=== PATIENT | female | born 1995 | race Caucasian/White ===

== ENCOUNTER 2018-04-08 07:27 | Emergency (ER) | payer BC, SELFPAY ==
[2018-04-08] MEDS ORDERED: BUPIVACAINE 0.5% PF 10 ML VIAL ONE (07:59)
--- NOTE | 2018-04-08 08:05 | ER ---
Nurse's Notes [facility] Name: Belem Carrera Age: 22 yrs Sex: Female : 1995 Arrival Date: 04/08/2018 Time: 07:28 Bed 20 Private MD: Diagnosis: Atypical facial pain Presentation: 04/08 07:43 Presenting complaint: Patient states: Right side jaw pain for 4 days, upper gum area, em denies fever, took ibuprofen at 4AM today. Transition of care: patient was not received from another setting of care. Onset of symptoms was April 04, 2018. Risk Assessment: Do you want to hurt yourself or someone else? Patient reports no desire to harm self or others. Initial Sepsis Screen: Does the patient meet any 2 criteria? No. Patient's initial sepsis screen is negative. Does the patient have a suspected source of infection? No. Patient's initial sepsis screen is negative. Care prior to arrival: None. 07:43 Method Of Arrival: Ambulatory em 07:43 Acuity: CECILIA 4 ss Triage Assessment: 07:46 General: Appears in no apparent distress. uncomfortable. General: Behavior is calm, em cooperative. Pain: Complains of pain in right buccal mucosa. 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 - Social history:: Smoking status: Patient/guardian denies using tobacco. - Ebola Screening: : Patient negative for fever greater than or equal to 101.5 degrees Fahrenheit, and additional compatible Ebola Virus Disease symptoms Patient denies exposure to infectious person Patient denies travel to an Ebola-affected area in the 21 days before illness onset No symptoms or risks identified at this time. Screenin:48 Abuse screen: Denies threats or abuse. Nutritional screening: No deficits noted. em Tuberculosis screening: No symptoms or risk factors identified. Fall Risk None identified. Assessment: 07:49 General: Appears in no apparent distress. uncomfortable, Behavior is calm, cooperative. em Pain: Complains of pain in right buccal mucosa Pain currently is 8 out of 10 on a pain scale. Quality of pain is described as sharp, pulsating. Neuro: Level of Consciousness is awake, alert, obeys commands, Oriented to person, place, time, situation. Cardiovascular: Capillary refill < 3 seconds Patient's skin is warm and dry. Respiratory: Airway is patent Respiratory effort is even, unlabored, Respiratory pattern is regular, symmetrical. GI: Abdomen is round Reports nausea, Patient currently denies vomiting. : No signs and/or symptoms were reported regarding the genitourinary system. EENT: Oral mucosa is moist. no swelling noted to right side, denies trauma. Derm: Skin is intact, Skin is pink, warm \T\ dry. Musculoskeletal: Range of motion: intact in all extremities. 07:50 General: the previous assessment is accurate, call light remains within reach. . ss Vital Signs: 07:46 BP 144 / 95; Pulse 71; Resp 16; Temp 98.6(O); Pulse Ox 100% on R/A; Weight 108.86 kg; em Height 5 ft. 6 in. (167.64 cm); Pain 8/10; 08:16 BP 138 / 89; Pulse 83; Resp 18; Pulse Ox 99% on R/A; Pain 4/10; em 07:46 Body Mass Index 38.74 (108.86 kg, 167.64 cm) em ED Course: 07:28 Patient arrived in ED. as 07:42 Edwin Rivera LVN is Primary Nurse. em 07:43 Jake Perez PA is PHCP. [facility] 07:43 Ruben Shell MD is Attending Physician. jmm 07:46 Arm band placed on. em 07:48 Patient has correct armband on for positive identification. Bed in low position. Call em light in reach. youth nutritional monitor on. Pulse ox on. 07:48 No provider procedures requiring assistance completed. em 07:49 Triage completed. ss 08:04 Quincy Nieves MD is Referral Physician. jmm 08:17 Patient did not have IV access during this emergency room visit. em Administered Medications: 08:05 Drug: Marcaine (0.5 %) 10 ml {Note: administered by REED Joseph.} Volume: 10 ml; Route: em Infiltration; Site: affected area; Outcome: 08:05 Discharge ordered by . jm 08:17 Discharged to home ambulatory. em 08:17 Condition: good 08:17 Discharge instructions given to patient, Instructed on discharge instructions, follow up and referral plans. medication usage, Demonstrated understanding of instructions, follow-up care, medications, Prescriptions given X 2. 08:18 Patient left the ED. em Signatures: Jake Perez PA PA jmm Munoz, Edgar, REHABILITATION TECHNICIAN REHABILITATION TECHNICIAN Molly Cintron Shelby, RN RN ss
--- NOTE | 2018-04-08 08:05 | EDPHYS ---
Physician Documentation [facility] Name: Belem Carrera Age: 22 yrs Sex: Female : 1995 Arrival Date: 04/08/2018 Time: 07:28 Bed 20 Private MD: ED Physician Ruben Shell HPI: 04/08 07:55 This 22 yrs old Female presents to ER via Ambulatory with complaints of jmm Facial Pain. 07:56 The patient presents with pain. Onset: The symptoms/episode began/occurred gradually, 1 jmm week(s) ago. 07:56 Duration: The symptoms are continuous. jmm 07:56 Modifying factors: The symptoms are alleviated by nothing, the symptoms are aggravated jmm by nothing. Associated signs and symptoms: Pertinent negatives: fever. This is a 22 year old female that presents to the ED with right sided facial pain beginning approx 1 week ago. The patient dental pain, the pain is described as sharp and throbbing. Patient denies fever, denies weakness. . 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 - Social history:: Smoking status: Patient/guardian denies using tobacco. - Ebola Screening: : Patient negative for fever greater than or equal to 101.5 degrees Fahrenheit, and additional compatible Ebola Virus Disease symptoms Patient denies exposure to infectious person Patient denies travel to an Ebola-affected area in the 21 days before illness onset No symptoms or risks identified at this time. ROS: 07:56 Constitutional: Negative for fever, chills, and weight loss. jmm 07:56 Neck: Negative for injury, pain, and swelling, Cardiovascular: Negative for chest pain, palpitations, and edema, Respiratory: Negative for shortness of breath, cough, wheezing, and pleuritic chest pain. 07:56 ENT: Positive for facial pain. 07:56 All other systems are negative. Exam: 07:56 Cardiovascular: Regular rate and rhythm. No edema appreciated Respiratory: Normal [facility] respirations, no respiratory distress appreciated Abdomen/GI: Non distended, soft Back: Normal ROM MS/ Extremity: Moves all extremities, no obvious deformities appreciated, no edema noted to the lower extremities Neuro: Awake and alert, normal gait 07:56 Constitutional: The patient appears in no acute distress, alert, awake. 07:56 Head/face: pain on palpation of the right maxillary region. 07:56 ENT: Dental exam: dental caries, that is moderate, diffusely. 07:56 Neck: ROM/movement: is normal. 07:56 Neuro: Orientation: is normal, Mentation: is normal, Memory: is normal, Gait: is steady. 07:56 Psych: Behavior/mood is pleasant, cooperative. Vital Signs: 07:46 BP 144 / 95; Pulse 71; Resp 16; Temp 98.6(O); Pulse Ox 100% on R/A; Weight 108.86 kg; em Height 5 ft. 6 in. (167.64 cm); Pain 8/10; 08:16 BP 138 / 89; Pulse 83; Resp 18; Pulse Ox 99% on R/A; Pain 4/10; em 07:46 Body Mass Index 38.74 (108.86 kg, 167.64 cm) em MDM: 07:45 Patient medically screened. [facility] 07:56 Response to treatment: the patient's symptoms have markedly improved after treatment. [facility] ED course: Patient will be put on a course of abx due to concerns for infection. Symptoms may be related to paresthesias, the patient is encourged to follow up with Neurology if symptoms do not imprave with antibiotics. Patient states she is otherwise scheduled to see a dentist next week for further evaluation. Patient understood and agrees with the plan of care. 08:04 Differential diagnosis: dental abscess, trigeminal neuralgia, TMJ. Data reviewed: vital [facility] signs, nurses notes. Counseling: I had a detailed discussion with the patient and/or guardian regarding: the historical points, exam findings, and any diagnostic results supporting the discharge/admit diagnosis, the presence of at least one elevated blood pressure reading (>120/80) during this emergency department visit, the need for outpatient follow up, to return to the emergency department if symptoms worsen or persist or if there are any questions or concerns that arise at home. Administered Medications: 08:05 Drug: Marcaine (0.5 %) 10 ml {Note: administered by PA. Jake} Volume: 10 ml; Route: em Infiltration; Site: affected area; Disposition: 04/09 06:33 Co-signature as Attending Physician, Ruben Shell MD I agree with the assessment and robbie plan of care. Disposition: 04/08/18 08:05 Discharged to Home. Impression: Atypical facial pain. - Condition is Stable. - Discharge Instructions: Dental Pain, Trigeminal Neuralgia. - Prescriptions for Amoxicillin 875 mg Oral Tablet - take 1 tablet by ORAL route every 12 hours for 10 days; 20 tablet. Ultram 50 mg Oral Tablet - take 1 tablet by ORAL route every 6 hours As needed; 12 tablet. - Medication Reconciliation Form, Thank You Letter, Antibiotic Education, Prescription Opioid Use form. - Follow up: Quincy Nieves MD; When: 2 - 3 days; Reason: Continuance of care. Signatures: Ruben Shell MD MD cha Mickail, Joel, PA PA Edwin Jarrell, ASSISTANT PARALEGAL ASSISTANT PARALEGAL em Corrections: (The following items were deleted from the chart) 04/08 08:18 08:05 04/08/2018 08:05 Discharged to Home. Impression: Atypical facial pain. Condition em is Stable. Forms are Medication Reconciliation Form, Thank You Letter, Antibiotic Education, Prescription Opioid Use. Follow up: Quincy Nieves; When: 2 - 3 days; Reason: Continuance of care. josué
[2018-04-08 08:21] VITALS: TEMP 98.6
[2018-04-08 08:23] VITALS: BP 138/89; O2SAT 99
== END 2018-04-08 08:18 | disposition home or self-care (01) ==
LOC: ER 07:27
DX: G50.1 Atypical facial pain (principal)
CPT/HCPCS: 99284

== ENCOUNTER 2018-04-14 02:09 | Emergency (ER) | payer SELFPAY ==
--- NOTE | 2018-04-14 03:27 | ER ---
Nurse's Notes [facility] Name: Belem Carrera Age: 22 yrs Sex: Female : 1995 Arrival Date: 04/14/2018 Time: 02:10 Bed 11 Private MD: Diagnosis: Acute Allergic Reaction Presentation: 04/14 02:22 Presenting complaint: Patient states: I started taking Clindamycin on Tuesday and then I tl2 developed a rash on Tuesday. It started on my legs and now its on my arms and chest and back. Denies any respiratory difficulty. Transition of care: patient was not received from another setting of care. Onset of symptoms was April 11, 2018. Risk Assessment: Do you want to hurt yourself or someone else? Patient reports no desire to harm self or others. Initial Sepsis Screen: Does the patient meet any 2 criteria? No. Patient's initial sepsis screen is negative. Does the patient have a suspected source of infection? No. Patient's initial sepsis screen is negative. Care prior to arrival: None. 02:22 Method Of Arrival: Ambulatory tl2 02:22 Acuity: CECILIA 4 tl2 Triage Assessment: 02:23 General: Appears in no apparent distress. comfortable, Behavior is calm, cooperative, tl2 appropriate for age. 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 - Social history:: Smoking status: Patient/guardian denies using tobacco. - Ebola Screening: : No symptoms or risks identified at this time. - Family history:: not pertinent. - Hospitalizations: : No recent hospitalization is reported. Screenin:25 Abuse screen: Denies threats or abuse. Nutritional screening: No deficits noted. tl2 Tuberculosis screening: No symptoms or risk factors identified. Fall Risk None identified. Assessment: 03:01 General: Appears comfortable, obese, Behavior is calm, cooperative, appropriate for fc age. Pain: Denies pain. Neuro: Level of Consciousness is awake, alert, obeys commands, Oriented to person, place, time, situation. Cardiovascular: No deficits noted. Respiratory: No deficits noted. GI: No signs and/or symptoms were reported involving the gastrointestinal system. : No deficits noted. EENT: No deficits noted. Derm: Skin is pink, warm \T\ dry. Rash noted that is red, raised, urticaria, on buttocks, chest, right leg and left leg Reports itching. Musculoskeletal: Circulation, motion, and sensation intact. Capillary refill < 3 seconds, Range of motion: intact in all extremities. 03:10 Reassessment: No changes from previously documented assessment. Patient and/or family fc updated on plan of care and expected duration. Pain level reassessed. Patient is alert, oriented x 3, equal unlabored respirations, skin warm/dry/pink. Dr Aguirre in to see and examine pt. Vital Signs: 02:23 BP 124 / 73; Pulse 80; Resp 18; Temp 98.6(O); Pulse Ox 98% on R/A; Weight 131.54 kg; tl2 Height 5 ft. 6 in. (167.64 cm); Pain 0/10; 02:23 Body Mass Index 46.81 (131.54 kg, 167.64 cm) tl2 ED Course: 02:10 Patient arrived in ED. es 02:23 Triage completed. tl2 02:23 Arm band placed on right wrist. tl2 02:56 Mayur Aguirre MD is Attending Physician. wa 03:00 Patient has correct armband on for positive identification. Bed in low position. Call fc light in reach. 03:00 No provider procedures requiring assistance completed. Patient did not have IV access fc during this emergency room visit. Administered Medications: 03:35 Drug: Benadryl 25 mg Route: PO; 03:41 Follow up: Response: No adverse reaction; Medication administered at discharge. 03:35 Drug: predniSONE 40 mg Route: PO; 03:41 Follow up: Response: No adverse reaction; Medication administered at discharge. fc Outcome: 03:27 Discharge ordered by . la 03:41 Discharged to home ambulatory. 03:41 Condition: good 03:41 Discharge instructions given to patient, Instructed on discharge instructions, follow up and referral plans. medication usage, Demonstrated understanding of instructions, follow-up care, medications, Prescriptions given X 1. 03:41 Patient left the ED. fc Signatures: Maida De La Torre Felicia, RN RN fc Ligia Pryor RN RN tl2 Mayur Aguirre MD MD wa
--- NOTE | 2018-04-14 03:27 | EDPHYS ---
Physician Documentation [facility] Name: Belem Carrera Age: 22 yrs Sex: Female : 1995 Arrival Date: 04/14/2018 Time: 02:10 Bed 11 Private MD: ED Physician Mayur Aguirre HPI: 04/14 03:21 This 22 yrs old Female presents to ER via Ambulatory with complaints of Rash. 03:21 The patient's rash thought to be caused by medication, c/o diffuse itchy rash. on clindamycin for infected tooth. denies SOB. The rash is located on the body diffusely. The rash can be described as erythematous, urticarial. Onset: The symptoms/episode began/occurred today. Associated signs and symptoms: Pertinent positives: itching, Pertinent negatives: nausea. Severity of symptoms: At their worst the symptoms were moderate in the emergency department the symptoms are unchanged. Treatment given at home: none. The patient has not experienced similar symptoms in the past. The patient has not recently seen a physician. states she's due to for tooth extraction later today. 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 - Social history:: Smoking status: Patient/guardian denies using tobacco. - Ebola Screening: : No symptoms or risks identified at this time. - Family history:: not pertinent. - Hospitalizations: : No recent hospitalization is reported. ROS: 03:24 Constitutional: Negative for fever, chills, and weight loss, Eyes: Negative for injury, wa pain, redness, and discharge, ENT: Negative for injury, pain, and discharge, Neck: Negative for injury, pain, and swelling, Cardiovascular: Negative for chest pain, palpitations, and edema, Respiratory: Negative for shortness of breath, cough, wheezing, and pleuritic chest pain, Abdomen/GI: Negative for abdominal pain, nausea, vomiting, diarrhea, and constipation, Back: Negative for injury and pain, : Negative for injury, bleeding, discharge, and swelling, MS/Extremity: Negative for injury and deformity, Neuro: Negative for headache, weakness, numbness, tingling, and seizure. 03:24 Skin: Positive for rash, diffusely. 03:24 All other systems are negative. Exam: 03:24 Constitutional: This is a well developed, well nourished patient who is awake, alert, wa and in no acute distress. Head/Face: Normocephalic, atraumatic. Eyes: Pupils equal round and reactive to light, extra-ocular motions intact. Lids and lashes normal. Conjunctiva and sclera are non-icteric and not injected. Cornea within normal limits. Periorbital areas with no swelling, redness, or edema. ENT: Nares patent. No nasal discharge, no septal abnormalities noted. Tympanic membranes are normal and external auditory canals are clear. Oropharynx with no redness, swelling, or masses, exudates, or evidence of obstruction, uvula midline. Mucous membranes moist. Neck: Trachea midline, no thyromegaly or masses palpated, and no cervical lymphadenopathy. Supple, full range of motion without nuchal rigidity, or vertebral point tenderness. No Meningismus. Cardiovascular: Regular rate and rhythm with a normal S1 and S2. No gallops, murmurs, or rubs. Normal PMI, no JVD. No pulse deficits. Respiratory: Lungs have equal breath sounds bilaterally, clear to auscultation and percussion. No rales, rhonchi or wheezes noted. No increased work of breathing, no retractions or nasal flaring. Abdomen/GI: Soft, non-tender, with normal bowel sounds. No distension or tympany. No guarding or rebound. No evidence of tenderness throughout. Back: No spinal tenderness. No costovertebral tenderness. Full range of motion. MS/ Extremity: Pulses equal, no cyanosis. Neurovascular intact. Full, normal range of motion. Neuro: Awake and alert, GCS 15, oriented to person, place, time, and situation. Cranial nerves II-XII grossly intact. Motor strength 5/5 in all extremities. Sensory grossly intact. Cerebellar exam normal. Normal gait. Psych: Awake, alert, with orientation to person, place and time. Behavior, mood, and affect are within normal limits. 03:24 Skin: rash can be described as erythematous, urticarial, and is diffusely located. Vital Signs: 02:23 BP 124 / 73; Pulse 80; Resp 18; Temp 98.6(O); Pulse Ox 98% on R/A; Weight 131.54 kg; tl2 Height 5 ft. 6 in. (167.64 cm); Pain 0/10; 02:23 Body Mass Index 46.81 (131.54 kg, 167.64 cm) tl2 MDM: 02:56 Patient medically screened. ca 03:25 Differential diagnosis: allergic reaction, potentially related clindamycin. will stop wa med. will give Benadryl dn prednisone. Data reviewed: vital signs, nurses notes. Administered Medications: 03:35 Drug: Benadryl 25 mg Route: PO; 03:41 Follow up: Response: No adverse reaction; Medication administered at discharge. 03:35 Drug: predniSONE 40 mg Route: PO; 03:41 Follow up: Response: No adverse reaction; Medication administered at discharge. Disposition: 04/14/18 03:27 Discharged to Home. Impression: Acute Allergic Reaction. - Condition is Stable. - Prescriptions for Prednisone 20 mg Oral Tablet - take 2 tablets by ORAL route once daily for 4 days; 8 tablet. - Medication Reconciliation Form, Thank You Letter, Antibiotic Education, Prescription Opioid Use form. - Follow up: Private Physician; When: 1 - 2 days; Reason: Re-evaluation by your physician. - Problem is new. - Symptoms have improved. - Notes: stop taking clindamycin. take prednisone as prescribed. you may take benadryl as well for itching Signatures: Ayanna Amin RN RN Ligia Pryor RN RN tl2 Mayur Aguirre MD MD wa Corrections: (The following items were deleted from the chart) 03:41 03:27 04/14/2018 03:27 Discharged to Home. Impression: Acute Allergic Reaction. fc Condition is Stable. Forms are Medication Reconciliation Form, Thank You Letter, Antibiotic Education, Prescription Opioid Use. Follow up: Private Physician; When: 1 - 2 days; Reason: Re-evaluation by your physician. Problem is new. Symptoms have improved. wa
[2018-04-14] MEDS ORDERED: DIPHENHYDRAMINE 25 MG TAB/CAP ONE (03:35)
[2018-04-14] MEDS ORDERED: predniSONE 20 MG TAB ONE (03:35)
[2018-04-14 04:00] VITALS: BP 124/73; TEMP 98.6; O2SAT 98
== END 2018-04-14 03:41 | disposition home or self-care (01) ==
LOC: ER 02:09
DX: R21 Rash and other nonspecific skin eruption (principal)
CPT/HCPCS: 99283; J7512

== ENCOUNTER 2018-07-23 21:40 | Emergency (ER) | payer SELFPAY ==
[2018-07-23 22:21] LABS: Urine Blood 2+ (NEG); Urine Glucose NEGATIVE (NEG); Urine Protein 2+ (NEG); Urine Specific Gravity >1.030 (1.005-1.030); Urine pH 5.5 (5.0-7.0)
[2018-07-23 22:37] LABS: Urine Appearance CLOUDY; Urine Bilirubin NEGATIVE (NEG); Urine Blood 3+ (NEG); Urine Color YELLOW; Urine Glucose NEGATIVE (NEG); Urine Protein 2+ (NEG); Urine Urobilinogen 0.2 mg/dL (0.2-1.0); Urine pH 5.5 (5.0-7.0)
[2018-07-23 22:47] LABS: Urine Microscopic Reflex ORDER UMIC
--- NOTE | 2018-07-23 23:05 | ER ---
Nurse's Notes [facility] Name: Belem Carrera Age: 22 yrs Sex: Female : 1995 Arrival Date: 07/23/2018 Time: 21:41 Bed 5 Private MD: Brandon Tan F Diagnosis: Urinary tract infection, site not specified Presentation: 07/23 21:59 Presenting complaint: Patient states: Patient reports pain and blood with urination ea this AM. Patient denies fever at this time. Transition of care: patient was not received from another setting of care. Onset of symptoms was July 23, 2018. Risk Assessment: Do you want to hurt yourself or someone else? Patient reports no desire to harm self or others. Initial Sepsis Screen: Does the patient meet any 2 criteria? No. Patient's initial sepsis screen is negative. Does the patient have a suspected source of infection? Yes: Dysuria/Frequency/Urgency/UTI. Care prior to arrival: None. 21:59 Method Of Arrival: Ambulatory ea 21:59 Acuity: CECILIA 3 ea Triage Assessment: 22:03 General: Appears in no apparent distress. Behavior is calm, cooperative, appropriate ea for age. Pain: Complains of pain in pain with urination. Neuro: Level of Consciousness is awake, alert, obeys commands, Oriented to person, place, time, situation. Cardiovascular: Patient's skin is warm and dry. Respiratory: Airway is patent Respiratory effort is even, unlabored, Respiratory pattern is regular, symmetrical. GI: Bowel sounds present X 4 quads. Derm: Skin is pink, warm \T\ dry. Musculoskeletal: No signs and/or symptoms reported regarding the musculoskeletal system. 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 - Social history:: Smoking status: Patient/guardian denies using tobacco. - Ebola Screening: : No symptoms or risks identified at this time. Screenin:02 Abuse screen: Denies threats or abuse. Nutritional screening: No deficits noted. ea Tuberculosis screening: No symptoms or risk factors identified. Fall Risk None identified. Assessment: 22:00 Reassessment: see triage assessment. ea 23:13 Reassessment: Patient and/or family updated on plan of care and expected duration. Pain ea level reassessed. Patient is alert, oriented x 3, equal unlabored respirations, skin warm/dry/pink. Discharge instruction given to patient, verbalized the understanding of instruction. Vital Signs: 22:01 BP 124 / 69; Pulse 78; Resp 18; Temp 97.6; Pulse Ox 99% ; Weight 113.4 kg; Height 5 ft. ea 6 in. (167.64 cm); Pain 3/10; 22:44 BP 125 / 84; Pulse 69; Resp 18; Pulse Ox 96% on R/A; tl2 22:01 Body Mass Index 40.35 (113.40 kg, 167.64 cm) ea ED Course: 21:41 Patient arrived in ED. am2 21:42 Brandon Tan MD is Private Physician. am2 21:52 Hallie Garibay RN is Primary Nurse. ea 21:53 Franco Ortiz MD is Attending Physician. tw4 22:01 Triage completed. ea 22:09 Patient has correct armband on for positive identification. Bed in low position. Call ea light in reach. Side rails up X 1. 22:09 Arm band placed on right wrist. Patient placed in an exam room, on a stretcher, on ea pulse oximetry. 23:04 Brandon Tan MD is Referral Physician. tw4 23:14 No provider procedures requiring assistance completed. Patient did not have IV access ea during this emergency room visit. Administered Medications: No medications were administered Outcome: 23:04 Discharge ordered by . tw4 23:14 Discharged to home ambulatory. ea 23:14 Condition: good 23:14 Discharge instructions given to patient, Instructed on discharge instructions, follow up and referral plans. medication usage, Demonstrated understanding of instructions, follow-up care, medications, Prescriptions given X 2. 23:15 Patient left the ED. ea Addendum: 07/27/2018 07:38 Addendum: Culture Results: Positive urine culture. No further action required. Bacteria a a5 sensitive to prescribed antibiotic. Signatures: Wilma Yuen RN RN aa5 Ligia Pryor RN RN 2 Bettie Estrada am2 Hallie Garibay RN RN Franco Clifford, MD GALVAN tw4
--- NOTE | 2018-07-23 23:05 | EDPHYS ---
Physician Documentation [facility] Name: Belem Carrera Age: 22 yrs Sex: Female : 1995 Arrival Date: 07/23/2018 Time: 21:41 Bed 5 Private MD: Brandon Tan F ED Physician Franco Ortiz FINANCE TEACHER: 07/23 22:01 LMP 07/15/2018 ea Historical: - Allergies: 22:09 No Known Allergies; ea - Home Meds: 22:09 None [Active]; ea - PMHx: 22:09 None; ea - PSHx: 22:09 ; ea - Immunization history:: Adult Immunizations up to date. - Social history:: Smoking status: Patient/guardian denies using tobacco. - Ebola Screening: : No symptoms or risks identified at this time. Vital Signs: 22:01 BP 124 / 69; Pulse 78; Resp 18; Temp 97.6; Pulse Ox 99% ; Weight 113.4 kg; Height 5 ft. ea 6 in. (167.64 cm); Pain 3/10; 22:44 BP 125 / 84; Pulse 69; Resp 18; Pulse Ox 96% on R/A; tl2 22:01 Body Mass Index 40.35 (113.40 kg, 167.64 cm) ea MDM: 21:53 Patient medically screened. tw4 07/23 22:00 Order name: Urinalysis tw4 07/23 22:01 Order name: Urine Dipstick--Ancillary (enter results); Complete Time: 22:56 ms 07/23 22:00 Order name: Urine Test (obtain specimen); Complete Time: 22:42 tw4 07/23 22:01 Order name: Urine --Ancillary (enter results); Complete Time: 22:56 ms 07/23 22:49 Order name: Urine Microscopic Only EDMS Administered Medications: No medications were administered Disposition: 07/23/18 23:04 Discharged to Home. Impression: Urinary tract infection, site not specified. - Condition is Stable. - Discharge Instructions: Dysuria, Urinary Tract Infection, Adult. - Prescriptions for Pyridium 200 mg Oral Tablet - take 1 tablet by ORAL route every 8 hours for 3 days; 9 tablet. Macrobid 100 mg Oral Capsule - take 1 capsule by ORAL route every 12 hours for 10 days; 20 capsule. - Work release form, Medication Reconciliation Form, Thank You Letter, Antibiotic Education, Prescription Opioid Use form. - Follow up: Brandon Tan MD; When: Upon discharge from the Emergency Department; Reason: If symptoms return, Further diagnostic work-up, Recheck today's complaints, Continuance of care. - Problem is new. - Symptoms have improved. Signatures: Dispatcher [employer] EDHallie Rowell RN RN ea Wadley, Terrence, MD MD tw4 Corrections: (The following items were deleted from the chart) 23:15 23:04 07/23/2018 23:04 Discharged to Home. Impression: Urinary tract infection, site ea not specified. Condition is Stable. Forms are Medication Reconciliation Form, Thank You Letter, Antibiotic Education, Prescription Opioid Use. Follow up: Brandon Tan; When: Upon discharge from the Emergency Department; Reason: If symptoms return, Further diagnostic work-up, Recheck today's complaints, Continuance of care. Problem is new. Symptoms have improved. tw4
[2018-07-23 23:26] LABS: Urine Bacteria <20 /HPF (<20); Urine Culture Reflex Order REFLEXED; Urine RBC >50 /HPF (NONE SEEN)
[2018-07-23 23:42] VITALS: TEMP 97.6
[2018-07-23 23:44] VITALS: BP 125/84; O2SAT 96
== END 2018-07-23 23:15 | disposition home or self-care (01) ==
LOC: ER 21:40
DX: N39.0 Urinary tract infection, site not specified (principal)
CPT/HCPCS: 81003; 81015; 81025; 87077; 87086; 87088; 87186; 99283

== ENCOUNTER 2019-01-14 01:43 | Emergency (ER) | payer SELFPAY ==
--- NOTE | 2019-01-14 02:19 | EDPHYS ---
Physician Documentation [facility] Name: Belem Carrera Age: 23 yrs Sex: Female : 1995 Arrival Date: 01/14/2019 Time: 01:46 Bed 8 Private MD: Brandon Tan F ED Physician Ananth Paige HPI: 01/14 02:09 This 23 yrs old Female presents to ER via Ambulatory with complaints of eye gs behind prostatic eye infected. 02:09 The patient is experiencing pain, redness. Onset: The symptoms/episode began/occurred gs yesterday. Duration: the symptoms are continuous. Aggravated by opening eye, pressure, wearing prothesis. Associated signs and symptoms: Pertinent negatives: fever, headache. Severity of symptoms: At their worst the symptoms were moderate in the emergency department the symptoms are unchanged. The patient has experienced similar episodes in the past, a few times. Historical: - Allergies: 02:06 No Known Allergies; aa1 - Home Meds: 02:06 None [Active]; aa1 - PMHx: 02:06 None; aa1 - PSHx: 02:06 ; Prosthetic L Eye; aa1 - Immunization history:: Last tetanus immunization: < 10 years ago. - Social history:: Smoking status: Patient/guardian denies using tobacco. - Ebola Screening: : No symptoms or risks identified at this time. ROS: 02:09 All other systems are negative. gs Exam: 02:09 Constitutional: The patient appears alert, awake, uncomfortable. gs 02:09 Eyes: Periorbital structures: appear normal, no cellulitis, Pupils: opaque left cornea chronic, blind in left eye, Extraocular movements: no acute changes, Conjunctiva: injected, in the left eye. Vital Signs: 01:53 BP 134 / 74; Pulse 69; Resp 16; Temp 98.4; Pulse Ox 100% on R/A; Weight 113.4 kg; aa1 Height 5 ft. 6 in. (167.64 cm); Pain 0/10; 01:53 Body Mass Index 40.35 (113.40 kg, 167.64 cm) aa1 MDM: 02:03 Patient medically screened. gs 02:09 Differential diagnosis: Acute iritis of Data reviewed: vital signs, nurses notes. gs Counseling: I had a detailed discussion with the patient and/or guardian regarding: the historical points, exam findings, and any diagnostic results supporting the discharge/admit diagnosis, the need for outpatient follow up, an opthalmologist. Response to treatment: There is no appreciated change of the patient's symptoms at this time. Administered Medications: No medications were administered Disposition: 01/14/19 02:18 Discharged to Home. Impression: Conjunctivitis. - Condition is Stable. - Discharge Instructions: Bacterial Conjunctivitis. - Prescriptions for Ocuflox 0.3 % Ophthalmic Drops - instill 2 drops by OPHTHALMIC route every 4 hours for 5 days; 5 milliliter. - Work release form, Medication Reconciliation Form, Thank You Letter, Antibiotic Education, Prescription Opioid Use form. - Follow up: Zi De Leon MD; When: 2 - 3 days; Reason: Re-evaluation by your physician. Signatures: Jessica Scott RN RN aa1 Hallie Garibay RN RN ea Ananth Paige MD MD gs Corrections: (The following items were deleted from the chart) 02:31 02:18 01/14/2019 02:18 Discharged to Home. Impression: Conjunctivitis. Condition is ea Stable. Forms are Medication Reconciliation Form, Thank You Letter, Antibiotic Education, Prescription Opioid Use. Follow up: Zi De Leon; When: 2 - 3 days; Reason: Re-evaluation by your physician. gs
--- NOTE | 2019-01-14 02:19 | ER ---
Nurse's Notes [facility] Name: Belem Carrera Age: 23 yrs Sex: Female : 1995 Arrival Date: 01/14/2019 Time: 01:46 Bed 8 Private MD: Brandon Tan F Diagnosis: Conjunctivitis Presentation: 01/14 01:53 Presenting complaint: Patient states: she thinks she may have an infection behind her aa1 prosthetic eye. States she has felt some burning and noticed some purulent drainage when she moved her prosthesis and when she took it out her eye behind it was red and swollen. Transition of care: patient was not received from another setting of care. Onset of symptoms was January 13, 2019. Risk Assessment: Do you want to hurt yourself or someone else? Patient reports no desire to harm self or others. Initial Sepsis Screen: Does the patient meet any 2 criteria? No. Patient's initial sepsis screen is negative. Does the patient have a suspected source of infection? Yes: Skin breakdown/wound. Care prior to arrival: None. 01:53 Method Of Arrival: Ambulatory aa1 01:53 Acuity: CECILIA 4 aa1 Historical: - Allergies: 02:06 No Known Allergies; aa1 - Home Meds: 02:06 None [Active]; aa1 - PMHx: 02:06 None; aa1 - PSHx: 02:06 ; Prosthetic L Eye; aa1 - Immunization history:: Last tetanus immunization: < 10 years ago. - Social history:: Smoking status: Patient/guardian denies using tobacco. - Ebola Screening: : No symptoms or risks identified at this time. Screenin:03 Abuse screen: Denies threats or abuse. Denies injuries from another. Nutritional aa1 screening: No deficits noted. Tuberculosis screening: No symptoms or risk factors identified. Fall Risk None identified. Assessment: 02:03 General: Appears in no apparent distress. comfortable, Behavior is calm, cooperative, aa1 appropriate for age. Pain: Denies pain. Neuro: Level of Consciousness is awake, alert, obeys commands, Oriented to person, place, time, situation. Respiratory: Airway is patent Respiratory effort is even, unlabored, Respiratory pattern is regular, symmetrical. GI: No signs and/or symptoms were reported involving the gastrointestinal system. : No signs and/or symptoms were reported regarding the genitourinary system. EENT: Eyes are tearing on left eye Sclera/Cornea are reddened in left eye. Derm: Skin is intact, is healthy with good turgor, Skin is pink, warm \T\ dry. 02:28 Reassessment: Patient and/or family updated on plan of care and expected duration. Pain ea level reassessed. Patient is alert, oriented x 3, equal unlabored respirations, skin warm/dry/pink. Discharge instructions given to patient, verbalized the understanding of instruction. Pt left ambulatory accompanied by significant other. Vital Signs: 01:53 BP 134 / 74; Pulse 69; Resp 16; Temp 98.4; Pulse Ox 100% on R/A; Weight 113.4 kg; aa1 Height 5 ft. 6 in. (167.64 cm); Pain 0/10; 01:53 Body Mass Index 40.35 (113.40 kg, 167.64 cm) aa1 ED Course: 01:46 Patient arrived in ED. es 01:47 Brandon Tan MD is Private Physician. es 01:49 Jessica Scott, KAYLEE is Primary Nurse. aa1 01:53 Arm band placed on right wrist. aa1 01:54 Ananth Paige MD is Attending Physician. gs 01:59 Triage completed. aa1 02:03 Patient has correct armband on for positive identification. Bed in low position. Call aa1 light in reach. Pulse ox on. NIBP on. 02:03 No provider procedures requiring assistance completed. Patient did not have IV access aa1 during this emergency room visit. 02:17 Zi De Leon MD is Referral Physician. Administered Medications: No medications were administered Outcome: 02:18 Discharge ordered by . gs 02:31 Discharged to home ambulatory, with significant other. ea 02:31 Condition: good 02:31 Discharge instructions given to patient, Instructed on discharge instructions, follow up and referral plans. medication usage, Demonstrated understanding of instructions, follow-up care, medications. 02:31 Patient left the ED. ea Signatures: Jessica Scott, KAYLEE RN aa1 Maida De La Torre Elena, RN RN ea Starr, Gregory, MD MD
[2019-01-14 02:50] VITALS: BP 134/74; TEMP 98.4; O2SAT 100
== END 2019-01-14 02:31 | disposition home or self-care (01) ==
LOC: ER 01:43
DX: H10.9 Unspecified conjunctivitis (principal); Z97.0 Presence of artificial eye
CPT/HCPCS: 99283

== ENCOUNTER 2019-03-07 16:02 | Emergency (ER) | payer SELFPAY ==
--- NOTE | 2019-03-07 16:23 | ER ---
Nurse's Notes [facility] Name: Belem Carrera Age: 23 yrs Sex: Female : 1995 Arrival Date: 03/07/2019 Time: 16:04 Bed 11 Private MD: Brandon Tan F Diagnosis: Other otitis externa Presentation: 03/07 16:05 Presenting complaint: Patient states: i have a severe R ear pain since Tuesday, i could hj hardly hear from that side; denies trauma to the area;. Transition of care: patient was not received from another setting of care. Onset of symptoms was March 07, 2019. Risk Assessment: Do you want to hurt yourself or someone else? Patient reports no desire to harm self or others. Initial Sepsis Screen: Does the patient meet any 2 criteria? No. Patient's initial sepsis screen is negative. Does the patient have a suspected source of infection? No. Patient's initial sepsis screen is negative. Care prior to arrival: None. 16:05 Method Of Arrival: Ambulatory 16:05 Acuity: CECILIA 4 hj Triage Assessment: 16:14 General: Appears in no apparent distress. uncomfortable, obese, Behavior is calm, hj cooperative, appropriate for age. Pain: Complains of pain in right ear. EENT: Reports pain in right ear. 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 - Social history:: Smoking status: Patient/guardian denies using tobacco, Patient/guardian denies using alcohol. - Ebola Screening: : Patient negative for fever greater than or equal to 101.5 degrees Fahrenheit, and additional compatible Ebola Virus Disease symptoms Patient denies exposure to infectious person Patient denies travel to an Ebola-affected area in the 21 days before illness onset. Screenin:14 Abuse screen: Denies threats or abuse. Denies injuries from another. Nutritional hj screening: No deficits noted. Tuberculosis screening: No symptoms or risk factors identified. Fall Risk None identified. Vital Signs: 16:06 BP 132 / 85; Pulse 75; Resp 18; Temp 97.0(TE); Pulse Ox 98% on R/A; Weight 113.4 kg; hj Height 5 ft. 6 in. (167.64 cm); Pain 8/10; 16:06 Body Mass Index 40.35 (113.40 kg, 167.64 cm) ED Course: 16:04 Patient arrived in ED. mr 16:04 Brandon Tan MD is Private Physician. mr 16:05 [facility] 16:05 Joselito Batres MD is Attending Physician. [facility] 16:06 Triage completed. 16:07 Arm band placed on right wrist. hj 16:14 Sven Griffiths, KAYLEE is Primary Nurse. hj 16:15 Patient has correct armband on for positive identification. Bed in low position. Call hj light in reach. Side rails up X 1. Adult w/ patient. 16:22 Arin Garcia MD is Referral Physician. [facility] 16:31 No provider procedures requiring assistance completed. Patient did not have IV access hj during this emergency room visit. Administered Medications: No medications were administered Outcome: 16:22 Discharge ordered by MD. [facility] 16:31 Discharged to home ambulatory, with family. 16:31 Condition: stable 16:31 Discharge instructions given to patient, family, Instructed on discharge instructions, follow up and referral plans. medication usage, Demonstrated understanding of instructions, follow-up care, medications, Prescriptions given X 1. 16:31 Patient left the ED. Signatures: Jake Perez PA PA [facility] Rani Christian mr Sven Griffiths, RN RN hj Corrections: (The following items were deleted from the chart) 16:08 16:06 Pulse 75bpm; Resp 18bpm; Pulse Ox 98% RA; Temp 97.0F Temporal; 113.4 kg; Height 5 hj ft. 6 in.; BMI: 40.3; Pain 8/10; hj
--- NOTE | 2019-03-07 16:23 | EDPHYS ---
Physician Documentation [facility] Name: Belem Carrera Age: 23 yrs Sex: Female : 1995 Arrival Date: 03/07/2019 Time: 16:04 Bed 11 Private MD: Brandon Tan F ED Physician Joselito Batres HPI: 03/07 16:19 This 23 yrs old Female presents to ER via Ambulatory with complaints of Ear jmm Pain. 16:19 The patient presents with pain, that is acute. Onset: The symptoms/episode jmm began/occurred gradually, 3 day(s) ago. Modifying factors: The symptoms are alleviated by nothing, the symptoms are aggravated by pulling on ears. Associated signs and symptoms: Pertinent negatives: fever. This is a 23 year old female with no chronic medical conditions that presents to the ED with complaints of right ear pain. Patient states she was playing on a water slide this past Tuesday. Denies fever, denies cough, denies congestion. . [employer]: 16:06 LMP 02/07/2019 Historical: - Allergies: 16:06 No Known Allergies; hj - PMHx: 16:06 None; hj - PSHx: 16:06 ; Prosthetic L Eye; hj - Immunization history:: Adult Immunizations up to date. - Social history:: Smoking status: Patient/guardian denies using tobacco, Patient/guardian denies using alcohol. - Ebola Screening: : Patient negative for fever greater than or equal to 101.5 degrees Fahrenheit, and additional compatible Ebola Virus Disease symptoms Patient denies exposure to infectious person Patient denies travel to an Ebola-affected area in the 21 days before illness onset. ROS: 16:19 Constitutional: Negative for fever, chills, and weight loss. jmm 16:19 Cardiovascular: Negative for chest pain, palpitations, and edema, Respiratory: Negative for shortness of breath, cough, wheezing, and pleuritic chest pain, Neuro: Negative for headache, weakness, numbness, tingling, and seizure. 16:19 ENT: Positive for ear pain. 16:19 All other systems are negative. Exam: 16:19 Constitutional: This is a well developed, well nourished patient who is awake, alert, jmm and in no acute distress. Head/Face: atraumatic. Eyes: EOMI, no conjunctival erythema appreciated 16:19 Neck: Trachea midline, Supple Chest/axilla: Normal chest wall appearance and motion. Cardiovascular: Regular rate and rhythm. No edema appreciated Respiratory: Normal respirations, no respiratory distress appreciated Abdomen/GI: Non distended, soft Back: Normal ROM Skin: General appearance color normal MS/ Extremity: Moves all extremities, no obvious deformities appreciated, no edema noted to the lower extremities Neuro: Awake and alert, normal gait Psych: Behavior is normal, Mood is normal, Patient is cooperative and pleasant 16:19 ENT: Ear canal(s): erythema, that is moderate, of the right canal, purulent discharge, that is minimal, in the right canal, TM's: are normal. Vital Signs: 16:06 BP 132 / 85; Pulse 75; Resp 18; Temp 97.0(TE); Pulse Ox 98% on R/A; Weight 113.4 kg; hj Height 5 ft. 6 in. (167.64 cm); Pain 8/10; 16:06 Body Mass Index 40.35 (113.40 kg, 167.64 cm) hj MDM: 16:13 Patient medically screened. [facility] 16:19 Data reviewed: vital signs, nurses notes. Counseling: I had a detailed discussion with [facility] the patient and/or guardian regarding: the presence of at least one elevated blood pressure reading (>120/80) during this emergency department visit, the need for outpatient follow up, to return to the emergency department if symptoms worsen or persist or if there are any questions or concerns that arise at home. ED course: PE exam consistent with OM. Patient is advised to follow up with ENT or pcp for further evaluation. Patient was otherwise given strict return precautions. patient understood and agrees with the plan of care. . Administered Medications: No medications were administered Disposition: 16:19 Chart complete. [facility] Disposition: 19 16:22 Discharged to Home. Impression: Other otitis externa. - Condition is Stable. - Discharge Instructions: Otitis Externa. - Prescriptions for Cortisporin- TC 3.3-3-10-0.5 mg/mL Otic Suspension - instill 4 drop by OTIC route every 6 hours; 1 bottle. - Medication Reconciliation Form, Thank You Letter, Antibiotic Education, Prescription Opioid Use form. - Follow up: Arin Garcia MD; When: 2 - 3 days; Reason: Recheck today's complaints, Continuance of care, Re-evaluation by your physician. Signatures: Jake Perez PA PA jmm Joaquin, Henry, RN RN hj Corrections: (The following items were deleted from the chart) 16:31 16:22 03/07/2019 16:22 Discharged to Home. Impression: Other otitis externa. Condition hj is Stable. Forms are Medication Reconciliation Form, Thank You Letter, Antibiotic Education, Prescription Opioid Use. Follow up: Arin Garcia; When: 2 - 3 days; Reason: Recheck today's complaints, Continuance of care, Re-evaluation by your physician. josué
[2019-03-07 17:04] VITALS: BP 132/85; TEMP 97; O2SAT 98
== END 2019-03-07 16:31 | disposition home or self-care (01) ==
LOC: ER 16:02
DX: H60.8X9 Other otitis externa, unspecified ear (principal)
CPT/HCPCS: 99282

== ENCOUNTER 2022-10-21 13:42 | Emergency (ER) | payer SELFPAY ==
[2022-10-21 14:36] LABS: Absolute Lymphocytes (CBC) 1.7 K/uL (0.7-4.9); Hematocrit 41.1 % (36.0-45.0); Lymphocytes % 24.2 % (15.3-44.8); MCV 88.3 fL (80-100); MPV 8.1 fL (7.6-11.3); RBC Red Blood Cell Count 4.66 M/uL (3.86-4.86)
[2022-10-21 14:37] LABS: Urine Blood Negative (Negative); Urine Glucose Negative (Negative); Urine Protein Negative (Negative); Urine Specific Gravity 1.025 (1.005-1.030); Urine pH 5.5 (5.0-7.0)
[2022-10-21 14:47] LABS: Urine Bacteria <20 /HPF (<20); Urine RBC <5 /HPF (None Seen)
[2022-10-21 14:56] LABS: ALT/SGPT 33 U/L (13-56); AST/SGOT 13 U/L (15-37); Albumin 3.6 g/dL (3.4-5.0); Alkaline Phosphatase 50 U/L (45-117); BUN Blood Urea Nitrogen 9 mg/dL (7-18); Bicarbonate 28 mmol/L (21-32); Bilirubin Total 0.7 mg/dL (0.2-1.0); Glomerular Filtration Rate 94 ml/min (=/>90); Glucose Level 101 mg/dL (74-106); Potassium 3.7 mmol/L (3.5-5.1); Protein, Total 7.7 g/dL (6.4-8.2); Sodium Level 143 mmol/L (136-145)
[2022-10-21 14:57] LABS: HCG, Quantitative < 1 mIU/mL (1-3)
[2022-10-21 15:01] LABS: Urine Specific Gravity/Preg 1.025 (1.005-1.030)
--- NOTE | 2022-10-21 15:38 | ER ---
Nurse's Notes [facility] Name: Belem Carrera Age: 27 yrs Sex: Female : 1995 Arrival Date: 10/21/2022 Time: 13:45 Bed 14 Private MD: Diagnosis: Abdominal pain, Generalized Presentation: 10/21 13:49 Chief complaint: Patient states: positive 2 days ago, pt reports pain to RLQ. aa5 Denies vaginal bleeding. 13:52 Coronavirus screen: At this time, the client does not indicate any symptoms associated aa5 with coronavirus-19. Ebola Screen: Patient denies travel to an Ebola-affected area in the 21 days before illness onset. Initial Sepsis Screen: Does the patient meet any 2 criteria? No. Patient's initial sepsis screen is negative. Does the patient have a suspected source of infection? No. Patient's initial sepsis screen is negative. Risk Assessment: Do you want to hurt yourself or someone else? Patient reports no desire to harm self or others. Onset of symptoms was September 2022. 13:52 Acuity: CECILIA 3 aa5 13:52 Method Of Arrival: Ambulatory aa5 Triage Assessment: 16:03 General: Appears in no apparent distress. comfortable. General: Behavior is calm, kr3 cooperative, appropriate for age. Pain: Denies pain. 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 - Social history:: Smoking status: Patient denies any tobacco usage or history of. Screenin:02 [facility] ED Fall Risk Assessment (Adult) History of falling in the last 3 months, kr3 including since admission No falls in past 3 months (0 pts) Confusion or Disorientation No (0 pts) Intoxicated or Sedated No (0 pts) Impaired Gait No (0 pts) Mobility Assist Device Used No (0 pt) Altered Elimination No (0 pt) Score/Fall Risk Level 0 - 2 = Low Risk. Abuse screen: Denies threats or abuse. Nutritional screening: No deficits noted. Tuberculosis screening: No symptoms or risk factors identified. Assessment: 16:07 Reassessment: Patient appears in no apparent distress at this time. Patient and/or kr3 family updated on plan of care and expected duration. Pain level reassessed. Patient is alert, oriented x 3, equal unlabored respirations, skin warm/dry/pink. Vital Signs: 13:50 BP 144 / 97; Pulse 73; Resp 18 S; Temp 98.4(TE); Pulse Ox 100% on R/A; Height 5 ft. 6 aa5 in. (167.64 cm) (R); 13:54 Weight 125.19 kg (M); aa5 13:54 Body Mass Index 44.55 (125.19 kg, 167.64 cm) aa5 ED Course: 13:45 Patient arrived in ED. as 13:46 Jack Herbert MD is Attending Physician. jr11 13:49 Arm band placed on. aa5 13:52 Triage completed. aa5 14:00 Inserted saline lock: 22 gauge in right antecubital area, using aseptic technique. kr3 Blood collected. 14:14 Clementina Monge, KAYLEE is Primary Nurse. kr3 15:37 Rex Luu DO is Referral Physician. jr11 16:03 No provider procedures requiring assistance completed. IV discontinued, intact, kr3 bleeding controlled, No redness/swelling at site. Pressure dressing applied. 16:04 Bed in low position. Call light in reach. Side rails up X 1. kr3 Administered Medications: No medications were administered Medication: 16:07 VIS not applicable for this client. kr3 Outcome: 15:38 Discharge ordered by . jr11 16:01 Patient left the ED. kr3 16:04 Discharged to home ambulatory. kr3 16:04 Condition: stable 16:04 Discharge instructions given to patient, Instructed on discharge instructions, follow up and referral plans. Demonstrated understanding of instructions, follow-up care. Signatures: Molly Desir Audri, RN RN aa5 Jack Herbert MD MD jr11 Clementina Monge, KAYLEE RN kr3 Corrections: (The following items were deleted from the chart) 13:52 13:49 Chief complaint: Patient states: positive 2 days ago, pt reports pain aa5 to RLQ. aa5 13:53 13:50 2, LMP 09/17/2022 aa5 aa5 16:04 14:55 Inserted saline lock: 22 gauge in right antecubital area, using aseptic kr3 technique. Blood collected. kr3
--- NOTE | 2022-10-21 15:39 | EDPHYS ---
Physician Documentation [facility] Name: Belem Carrera Age: 27 yrs Sex: Female : 1995 Arrival Date: 10/21/2022 Time: 13:45 Bed 14 Private MD: ED Physician Jack Herbert HPI: 10/21 14:04 Patient is a 27-year-old G2, P2 here after taking a test x2 and it being jr11 positive. Patient complains of mild discomfort right lower quadrant, 5 out of 10, denies any modifying factors. No nausea no vomiting. 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 - Social history:: Smoking status: Patient denies any tobacco usage or history of. ROS: 14:04 All other systems are negative. jr11 Exam: 14:04 Constitutional: This is a well developed, well nourished patient who is awake, alert, jr11 and in no acute distress. Head/Face: Normocephalic, atraumatic. Neck: Trachea midline, no thyromegaly or masses palpated, and no cervical lymphadenopathy. Supple, full range of motion without nuchal rigidity, or vertebral point tenderness. No Meningismus. Chest/axilla: Normal chest wall appearance and motion. Nontender with no deformity. No lesions are appreciated. Respiratory: Lungs have equal breath sounds bilaterally, clear to auscultation and percussion. No rales, rhonchi or wheezes noted. No increased work of breathing, no retractions or nasal flaring. Abdomen/GI: Soft, non-tender, with normal bowel sounds. No distension or tympany. No guarding or rebound. No evidence of tenderness throughout. Back: No spinal tenderness. No costovertebral tenderness. Full range of motion. Skin: Warm, dry with normal turgor. Normal color with no rashes, no lesions, and no evidence of cellulitis. MS/ Extremity: Pulses equal, no cyanosis. Neurovascular intact. Full, normal range of motion. Vital Signs: 13:50 BP 144 / 97; Pulse 73; Resp 18 S; Temp 98.4(TE); Pulse Ox 100% on R/A; Height 5 ft. 6 aa5 in. (167.64 cm) (R); 13:54 Weight 125.19 kg (M); aa5 13:54 Body Mass Index 44.55 (125.19 kg, 167.64 cm) aa5 MDM: 13:57 Patient medically screened. [facility] 14:04 Differential diagnosis: nonspecific abdominal pain, ovarian cyst, urinary tract jr11 infection, appy. Data reviewed: vital signs, nurses notes. 15:36 Test considered but Not performed: CT: shared decision making wants to do watchful jr11 waiting . 10/21 13:59 Order name: CBC with Diff; Complete Time: 14:46 10/21 13:59 Order name: Quantitative Hcg; Complete Time: 15:15 [facility] 10/21 13:59 Order name: CMP; Complete Time: 15:15 [facility] 10/21 14:06 Order name: UA MICROSCOPIC; Complete Time: 14:50 10/21 14:37 Order name: Urine Dipstick-Ancillary; Complete Time: 14:46 EDSD 10/21 13:59 Order name: IV Saline Lock; Complete Time: 14:28 10/21 13:59 Order name: Labs collected and sent; Complete Time: 14:28 10/21 13:59 Order name: NPO; Complete Time: 14:28 [facility] 10/21 13:59 Order name: Urine Dipstick-Ancillary (obtain specimen); Complete Time: 14:31 [facility] 10/21 13:59 Order name: Urine Test (obtain specimen); Complete Time: 14:31 [facility] 10/21 14:41 Order name: Urine --Ancillary (enter results); Complete Time: 15:15 kj1 Administered Medications: No medications were administered Disposition Summary: 10/21/22 15:38 Discharge Ordered Location: Home [facility] Condition: Stable jr11 Diagnosis - Abdominal pain, Generalized jr11 Followup: jr11 - With: Rex Luu, DO - When: 2 - 3 days - Reason: Re-evaluation by your physician Discharge Instructions: - Discharge Summary Sheet jr11 - Abdominal Pain, Adult jr11 Forms: - Medication Reconciliation Form jr11 - Thank You Letter jr11 - Antibiotic Education jr11 - Prescription Opioid Use jr11 Signatures: Dispatcher [employer] Wilma Flores, RN RN aa5 Jack Herbert MD MD jr11 Corrections: (The following items were deleted from the chart) 14:41 14:07 URINALYSIS+U.LAB.BRZ ordered. EDSD EDMS
[2022-10-21 16:07] VITALS: BP 144/97; TEMP 98.4; O2SAT 100
== END 2022-10-21 16:01 | disposition home or self-care (01) ==
LOC: ER 13:42
DX: R10.84 Generalized abdominal pain (principal)
CPT/HCPCS: 36415; 80053; 81003; 81015; 81025; 84702; 85025; 99283

== ENCOUNTER 2023-07-19 12:22 | Emergency (ER) | payer SELFPAY ==
[2012-03-04 19:30] VITALS: BP 117/59
[2023-07-19] MEDS ORDERED: IBUPROFEN 200 MG TAB PO ONE (12:49)
[2023-07-19 13:15] LABS: Specific Gravity 1.016 (1.005-1.030)
[2023-07-19 13:22] LABS: Specific Gravity 1.016 (1.005-1.030); Urine Bacteria None Seen /HPF (<20); Urine Bilirubin NEGATIVE (Negative); Urine Blood 1+ (Negative); Urine Clarity Extremely Turbid (Clear); Urine Color Light-Yellow (Yellow); Urine Glucose NEGATIVE (Negative); Urine Mucus Slight /HPF (None Seen); Urine Protein NEGATIVE (Negative); Urine RBC 21-50 /HPF (None Seen); Urine Urobilinogen Normal (Normal); Urine pH 5.5 (5.0-7.0)
--- NOTE | 2023-07-19 13:44 | EDPHYS ---
Physician Documentation [facility] Name: Belem Carrera Age: 27 yrs Sex: Female : 1995 Arrival Date: 07/19/2023 Time: 12:22 Bed 9 Private MD: PAULIE Physician Ruben Shell HPI: 07/19 12:30 This 27 yrs old Female presents to ER via Ambulatory with complaints of Urinary jh7 Problem-burning with urination. 12:30 Onset: The symptoms/episode began/occurred last night. Associated signs and symptoms: jh7 Pertinent negatives: abdominal pain, chest pain, fever, shortness of breath, flank pain. 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 - Social history:: Smoking status: Reported history of juuling and/or vaping. ROS: 12:30 Constitutional: Negative for fever, chills, and weight loss, Cardiovascular: Negative jh7 for chest pain, palpitations, and edema, Respiratory: Negative for shortness of breath, cough, wheezing, and pleuritic chest pain, Abdomen/GI: Negative for abdominal pain, nausea, vomiting, diarrhea, and constipation, Back: Negative for injury and pain, MS/Extremity: Negative for injury and deformity, Skin: Negative for injury, rash, and discoloration, Neuro: Negative for headache, weakness, numbness, tingling, and seizure, 12:30 : Positive for hematuria, burning with urination, Negative for flank pain, vaginal discharge, 12:30 All other systems are negative, Exam: 12:30 Constitutional: This is a well developed, well nourished patient who is awake, alert, jh7 and in no acute distress. Cardiovascular: Regular rate and rhythm with a normal S1 and S2. No gallops, murmurs, or rubs. Normal PMI, no JVD. No pulse deficits. Respiratory: Lungs have equal breath sounds bilaterally, clear to auscultation and percussion. No rales, rhonchi or wheezes noted. No increased work of breathing, no retractions or nasal flaring. Abdomen/GI: Soft, non-tender, with normal bowel sounds. No distension or tympany. No guarding or rebound. No evidence of tenderness throughout. Back: No spinal tenderness. No costovertebral tenderness. Full range of motion. Skin: Warm, dry with normal turgor. Normal color with no rashes, no lesions, and no evidence of cellulitis. MS/ Extremity: Pulses equal, no cyanosis. Neurovascular intact. Full, normal range of motion. Neuro: Awake and alert, GCS 15, oriented to person, place, time, and situation. Normal gait. Vital Signs: 12:28 BP 125 / 82; Pulse 77; Resp 16 S; Temp 98.4; Pulse Ox 100% on R/A; Weight 113.4 kg (R); cm10 Height 5 ft. 6 in. (R); Pain 07/05; 12:28 Body Mass Index 40.35 (113.40 kg, 167.64 cm) cm10 12:28 Pain Scale: Adult cm10 MDM: 12:28 Patient medically screened. [facility] 13:50 Differential diagnosis: UTI, Pyelonephritis, bacterial vaginosis, yeast infection, jh7 dysuria. Data reviewed: vital signs, nurses notes, lab test result(s). I considered the following discharge prescriptions or medication management in the emergency department Medications were administered in the Emergency Department. See MAR. Counseling: I had a detailed discussion with the patient and/or guardian regarding the historical points, exam findings, and any diagnostic results supporting the discharge/admit diagnosis, to return to the emergency department if symptoms worsen or persist or if there are any questions or concerns that arise at home. Response to treatment: the patient's symptoms have mildly improved after treatment. 07/19 12:35 Order name: Urinalysis w/ reflexes; Complete Time: 13:44 cm10 07/19 12:35 Order name: Test, Urine; Complete Time: 13:21 cm10 07/19 13:27 Order name: Urine Culture EDMS Administered Medications: 12:36 Drug: Ibuprofen PO 600 mg PO once Route: PO; cm10 13:54 Follow up: Response: No adverse reaction eh3 Disposition Summary: 07/19/23 13:44 Discharge Ordered Notes: Location: Home [facility] Problem: new 7 Symptoms: have improved jh7 Condition: Stable [facility] Diagnosis - UTI/ Urinary tract infection, site not specified 7 Followup: [facility] - With: Private Physician - When: 2 - 3 days - Reason: Recheck today's complaints Discharge Instructions: - Discharge Summary Sheet [facility] - Urinary Tract Infection, Adult [facility] Forms: - Work release form 3 - Medication Reconciliation Form [facility] - Thank You Letter [facility] - Antibiotic Education [facility] - Patient Portal Instructions [facility] - Leadership Thank You Letter [facility] Prescriptions: - Pyridium 200 mg Oral Tablet - take 1 tablet ORAL route every 8 hours for 3 days; 9 tablet; Refills: 0, [facility] Product Selection Permitted - Macrobid 100 mg Oral Capsule - take 1 capsule ORAL route every 12 hours for 7 days; 14 capsule; Refills: 0, [facility] Product Selection Permitted Signatures: Dispatcher [employer] Shasta Garcia FNP [employer]RAKE [employer]ER [facility] Lisa Desir RN RN 10 Debbie Garcia RN 3
--- NOTE | 2023-07-19 13:44 | ER ---
Nurse's Notes [facility] Name: Belem Carrera Age: 27 yrs Sex: Female : 1995 Arrival Date: 07/19/2023 Time: 12:22 Bed 9 Private MD: Diagnosis: UTI/ Urinary tract infection, site not specified Presentation: 07/19 12:28 Chief complaint: Patient states: urinary frequency, burning with urination and blood in cm10 her urine onset last night. No fevers. Coronavirus screen: Vaccine status: Patient reports receiving the 2nd dose of the covid vaccine. Client denies travel out of the [place] in the last 14 days. Ebola Screen: Patient denies travel to an Ebola-affected area in the 21 days before illness onset. No symptoms or risks identified at this time. Initial Sepsis Screen: Does the patient meet any 2 criteria? No. Patient's initial sepsis screen is negative. Does the patient have a suspected source of infection? No. Patient's initial sepsis screen is negative. Risk Assessment: Do you want to hurt yourself or someone else? Patient reports no desire to harm self or others. Onset of symptoms was July 19, 2023. 12:28 Method Of Arrival: Ambulatory cm10 12:28 Acuity: CECILIA 3 cm10 Triage Assessment: 12:30 General: Appears in no apparent distress. comfortable, Behavior is calm, cooperative. cm10 Pain: Complains of pain in suprapubic area. EENT: No deficits noted. No signs and/or symptoms were reported regarding the EENT system. Neuro: No deficits noted. Cotto Agitation-Sedation Scale (RASS): 0 - Alert and Calm Level of Consciousness is awake, alert, obeys commands, Oriented to person, place, time, situation. Cardiovascular: No deficits noted. Patient's skin is warm and dry. Respiratory: No deficits noted. Airway is patent Respiratory effort is even, unlabored, Respiratory pattern is regular, symmetrical. GI: No deficits noted. No signs and/or symptoms were reported involving the gastrointestinal system. : Reports burning with urination, cramping, urgency, urinary frequency. Derm: No deficits noted. No signs and/or symptoms reported regarding the dermatologic system. Skin is intact, Skin is pink, warm \T\ dry. Musculoskeletal: No deficits noted. No signs and/or symptoms reported regarding the musculoskeletal system. Range of motion: intact in all extremities. 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 - Social history:: Smoking status: Reported history of juuling and/or vaping. Screenin:43 [facility] ED Fall Risk Assessment (Adult) Score/Fall Risk Level 0 - 2 = Low Risk. Abuse eh3 screen: Denies threats or abuse. Denies injuries from another. Nutritional screening: No deficits noted. Tuberculosis screening: No symptoms or risk factors identified. Assessment: 13:43 General: Appears in no apparent distress. uncomfortable, Behavior is calm, cooperative, eh3 appropriate for age. Pain: Complains of pain in suprapubic area. Neuro: Level of Consciousness is awake, alert, obeys commands, Oriented to person, place, time, situation. Cardiovascular: Capillary refill < 3 seconds Patient's skin is warm and dry. Respiratory: Airway is patent Respiratory effort is even, unlabored, Respiratory pattern is regular, symmetrical. GI: Abdomen is round non-distended. Derm: Skin is pink, warm \T\ dry. Musculoskeletal: Circulation, motion, and sensation intact. Range of motion: intact in all extremities. 13:43 : Reports burning with urination, pain in suprapubic area with urination, urgency, eh3 urinary frequency. Vital Signs: 12:28 BP 125 / 82; Pulse 77; Resp 16 S; Temp 98.4; Pulse Ox 100% on R/A; Weight 113.4 kg (R); cm10 Height 5 ft. 6 in. (R); Pain 10/10; 12:28 Body Mass Index 40.35 (113.40 kg, 167.64 cm) cm10 12:28 Pain Scale: Adult cm10 ED Course: 12:24 Patient arrived in ED. mg5 12:28 Sh[facility] Andrews FNP [facility] jh7 12:28 Ruben Shell MD is Attending Physician. jh7 12:30 Triage completed. cm10 12:31 Arm band placed on Patient placed in an exam room, on a stretcher. cm10 13:02 Test, Urine Sent. cm10 13:02 Urinalysis w/ reflexes Sent. cm10 13:43 Patient has correct armband on for positive identification. Bed in low position. Call eh3 light in reach. Side rails up X2. Provided Education on: Use of call catalan. 13:48 Debbie Garcia, RN is Primary Nurse. 3 13:51 No provider procedures requiring assistance completed. Patient did not have IV access eh3 during this emergency room visit. Administered Medications: 12:36 Drug: Ibuprofen PO 600 mg PO once Route: PO; cm10 13:54 Follow up: Response: No adverse reaction eh3 Medication: 13:51 VIS not applicable for this client. eh3 Outcome: 13:44 Discharge ordered by . Angela 13:51 Discharged to home ambulatory, 3 13:51 Condition: stable 13:51 Discharge instructions given to patient, Instructed on discharge instructions, follow up and referral plans. medication usage, Demonstrated understanding of instructions, follow-up care, medications, Prescriptions given X 2, 13:55 Patient left the ED. 3 Signatures: Debbie Garcia, RN RN 3 Shasta Andrews, YESSY WARDP Lisa Palomo RN RN 10 Rachel Gaytan mg5
== END 2023-07-19 13:55 | disposition home or self-care (01) ==
LOC: ER 12:22
DX: N39.0 Urinary tract infection, site not specified (principal)
CPT/HCPCS: 81001; 81025; 87086; 87088

== ENCOUNTER 2024-06-03 14:40 | Emergency (ER) | payer SELFPAY ==
--- NOTE | 2024-06-03 15:25 | RAD REPORT ---
EXAM DESCRIPTION: RAD - Chest Single View - 06/03/2024 3:15 pm CLINICAL HISTORY: CHEST PAIN Chest pain. COMPARISON: CHEST PA AND LAT 2 VIEW dated 05/08/2015; CHEST SINGLE VIEW dated 01/01/2011 FINDINGS: Portable technique limits examination quality. The lungs are grossly clear. The heart is normal in size. No displaced fractures. IMPRESSION: No acute intrathoracic process suspected.
--- NOTE | 2024-06-03 15:51 | EDPHYS ---
Physician Documentation [facility] Name: Belem Carrera Age: 28 yrs Sex: Female : 1995 Arrival Date: 06/03/2024 Time: 14:40 Bed 16 Private MD: ED Physician Sarkis Cooper HPI: 06/03 15:49 This 28 yrs old Female presents to ER via Ambulatory with complaints of Flank Pain - kb x1wk. 15:49 Pt is a 28 year old female who presents for pain to posterior right ribs that started kb one week ago and is worse with inspiration. States she is also having pain to right tricep. Denies injury or trauma. . 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 - Infectious Disease History:: Denies. - Social history:: Smoking status: Reported history of juuling and/or vaping. Patient/guardian denies using alcohol. ROS: 15:49 Constitutional: As per HPI kb Exam: 15:49 Constitutional: This is a well developed, well nourished patient who is awake, alert, kb and in no acute distress. Head/Face: Normocephalic, atraumatic. ENT: Moist Mucous membranes Chest/axilla: Normal chest wall appearance and motion. Cardiovascular: Regular rate Respiratory: Respirations even and unlabored. No increased work of breathing. Talking in full sentences Abdomen/GI: Soft, non-tender. No distention Skin: Warm, dry with normal turgor. Normal color. MS/ Extremity: Pulses equal, no cyanosis. Neurovascular intact. Full, normal range of motion. Neuro: Awake and alert, GCS 15, oriented to person, place, time, and situation. Moves all extremities. Normal gait. 15:49 Back: pain, that is mild, of the right subscapular area, ROM is normal, normal spinal alignment noted, Vital Signs: 14:46 BP 128 / 77; Pulse 93; Resp 19; Temp 98.6(O); Pulse Ox 100% on R/A; Weight 113.4 kg; tm6 Height 5 ft. 6 in. ; 14:49 Pain 8/10; tm6 15:30 BP 112 / 78; Pulse 79; Resp 16; Pulse Ox 100% ; me1 15:30 BP 112 / 69; Pulse 70; Resp 16; Temp 98.4(O); Pulse Ox 100% ; me1 14:46 Body Mass Index 40.35 (113.40 kg, 167.64 cm) tm6 14:49 Pain Scale: Adult tm6 MDM: 14:46 Patient medically screened. kb 15:50 Differential diagnosis: contusion, fracture, zoster, strain. Data reviewed: vital kb signs, nurses notes. Counseling: I had a detailed discussion with the patient and/or guardian regarding the historical points, exam findings, and any diagnostic results supporting the discharge/admit diagnosis, radiology results, the need for outpatient follow up, a family practitioner, to return to the emergency department if symptoms worsen or persist or if there are any questions or concerns that arise at home. 06/03 14:48 Order name: Chest Single View XRAY; Complete Time: 15:32 kb Administered Medications: 16:09 Drug: HYDROcodone-acetaminophen PO 5 mg-325 mg 1 tabs PO once Route: PO; me1 16:24 Follow up: Response: No adverse reaction; Pain is decreased me1 Disposition: 17:35 Co-signature as Attending Physician, Sarkis Cooper MD I reviewed the patient's care rt provided by the Advanced Practice Provider and agree with the diagnosis and treatment plan. Disposition Summary: 06/03/24 15:51 Discharge Ordered Notes: Location: Home kb Condition: Stable kb Diagnosis - Pain of posterior right thorax kb Followup: kb - With: Emergency Department - When: As needed - Reason: Worsening of condition Followup: kb - With: Private Physician - When: 2 - 3 days - Reason: Recheck today's complaints, Continuance of care, Re-evaluation by your physician Discharge Instructions: - Discharge Summary Sheet kb - Musculoskeletal Pain kb Forms: - Medication Reconciliation Form kb - Antibiotic Education kb - Prescription Opioid Use kb - Patient Portal Instructions kb - Leadership Thank You Letter kb Prescriptions: - Diclofenac Sodium 75 mg Oral tablet, delayed release (enteric coated) - take 1 tablet ORAL route 2 times per day As needed; 30 tablet; Refills: 0, kb Product Selection Permitted - orphenadrine citrate 100 mg Oral Tablet Sustained Release - take 1 tablet ORAL route 2 times per day As needed; 20 tablet; Refills: 0, kb Product Selection Permitted Signatures: Dispatcher [employer] Brenda Clark, HOT SHOT-C HOT SHOT-CkSarkis Barnett MD MD rt Glenis Peraza, RN RN me1 May Bruner RN RN tm6 Corrections: (The following items were deleted from the chart) 14:49 14:49 Chest Single View+RAD.RAD.BRZ ordered. RASHAWN MOROCHO
--- NOTE | 2024-06-03 15:51 | ER ---
Nurse's Notes [facility] Name: Belem Carrera Age: 28 yrs Sex: Female : 1995 Arrival Date: 06/03/2024 Time: 14:40 Bed 16 Private MD: Diagnosis: Pain of posterior right thorax Presentation: 06/03 14:47 Chief complaint: Patient states: pain in side for one week and it's getting worse. It tm6 hurts to take breaths, my skin is numb there. Ebola Screen: Patient negative for fever greater than or equal to 101.5 degrees Fahrenheit, and additional compatible Ebola Virus Disease symptoms Patient denies exposure to infectious person. Patient denies travel to an Ebola-affected area in the 21 days before illness onset. No symptoms or risks identified at this time. Initial Sepsis Screen: Does the patient meet any 2 criteria? No. Patient's initial sepsis screen is negative. Does the patient have a suspected source of infection? No. Patient's initial sepsis screen is negative. Risk Assessment: Do you want to hurt yourself or someone else? Patient reports no desire to harm self or others. Onset of symptoms was May 27, 2024. 14:47 Method Of Arrival: Ambulatory tm6 14:47 Acuity: CECILIA 3 tm6 14:49 Coronavirus screen: Vaccine status: Patient reports receiving the 2nd dose of the covid tm6 vaccine. Triage Assessment: 14:47 General: Appears in no apparent distress. Behavior is calm, cooperative. Pain: tm6 Complains of pain in left scapular area, left subscapular area, left flank and left mid back Pain currently is 8 out of 10 on a pain scale. Quality of pain is described as aching, numb, Pain began one week ago. EENT: No signs and/or symptoms were reported regarding the EENT system. Neuro: Level of Consciousness is awake, alert, obeys commands, Oriented to person, place, time, situation, Reports numbness in back since one week ago. Cardiovascular: Patient's skin is warm and dry. Respiratory: Airway is patent Respiratory effort is even, unlabored, Respiratory pattern is regular, symmetrical. GI: No signs and/or symptoms were reported involving the gastrointestinal system. Abdomen is flat, non-distended. : No signs and/or symptoms were reported regarding the genitourinary system. Derm: No signs and/or symptoms reported regarding the dermatologic system. Musculoskeletal: Reports pain in back since one week ago. Pain is 8 out of 10 on a pain scale. 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 - Infectious Disease History:: Denies. - Social history:: Smoking status: Reported history of juuling and/or vaping. Patient/guardian denies using alcohol. Screenin:17 [facility] Fall Risk Assessment (Adult) History of falling in the last 3 months, me1 including since admission No falls in past 3 months (0 pts) Confusion or Disorientation No (0 pts) Intoxicated or Sedated No (0 pts) Impaired Gait No (0 pts) Mobility Assist Device Used No (0 pt) Altered Elimination No (0 pt) Score/Fall Risk Level 0 - 2 = Low Risk Maintained a safe environment, Provided non-skid footwear, Hourly rounding (assess needs \T\ fall precautionary measures) done. Abuse screen: Denies threats or abuse. Nutritional screening: No deficits noted. Tuberculosis screening: No symptoms or risk factors identified. Assessment: 15:17 General: Appears uncomfortable, well groomed, well developed, well nourished, Behavior me1 is calm, cooperative, appropriate for age, Reports pain in right posterior side for one week and it's getting worse. It hurts to take breaths, my skin is numb there. Pain: Complains of pain in left mid back and left flank and left subscapular area and left scapular area Pain does not radiate. Pain currently is 8 out of 10 on a pain scale. Quality of pain is described as sharp, Pain began about a week ago Is continuous. Neuro: Level of Consciousness is awake, alert, obeys commands, Oriented to person, place, time, situation, Appropriate for age. Cardiovascular: Patient's skin is warm and dry. Respiratory: Airway is patent Respiratory effort is even, unlabored, Respiratory pattern is regular, symmetrical. GI: No signs and/or symptoms were reported involving the gastrointestinal system. : No signs and/or symptoms were reported regarding the genitourinary system. EENT: No signs and/or symptoms were reported regarding the EENT system. Derm: Skin is intact, is healthy with good turgor, Skin is pink, warm \T\ dry. Musculoskeletal: Reports pain in left mid back and left flank and left subscapular area and left scapular area. Vital Signs: 14:46 BP 128 / 77; Pulse 93; Resp 19; Temp 98.6(O); Pulse Ox 100% on R/A; Weight 113.4 kg; tm6 Height 5 ft. 6 in. ; 14:49 Pain 8/10; tm6 15:30 BP 112 / 78; Pulse 79; Resp 16; Pulse Ox 100% ; me1 15:30 BP 112 / 69; Pulse 70; Resp 16; Temp 98.4(O); Pulse Ox 100% ; me1 14:46 Body Mass Index 40.35 (113.40 kg, 167.64 cm) tm6 14:49 Pain Scale: Adult tm6 ED Course: 14:43 Patient arrived in ED. ra3 14:46 [facility]C [facility]. kb 14:46 Sarkis Cooper MD is Attending Physician. kb 14:47 Triage completed. tm6 14:49 Arm band placed on right wrist. tm6 15:09 Glenis Peraza, RN is Primary Nurse. me1 15:17 Chest Single View XRAY In Process Unspecified. EDMS 15:17 Patient has correct armband on for positive identification. Bed in low position. Call me1 light in reach. Side rails up X2. Provided Education on: POC. Verbalized understanding. Client placed on continuous cardiac and pulse oximetry monitoring. NIBP monitoring applied. Pulse ox on. NIBP on. Warm blanket given. 15:17 No provider procedures requiring assistance completed. me1 16:24 Patient did not have IV access during this emergency room visit. me1 Administered Medications: 16:09 Drug: HYDROcodone-acetaminophen PO 5 mg-325 mg 1 tabs PO once Route: PO; me1 16:24 Follow up: Response: No adverse reaction; Pain is decreased me1 Medication: 15:17 VIS not applicable for this client. me1 Outcome: 15:51 Discharge ordered by . kb 16:24 Discharged to home ambulatory, with friend, me1 16:24 Condition: stable 16:24 Discharge instructions given to patient, friend, Instructed on discharge instructions, follow up and referral plans. medication usage, Demonstrated understanding of instructions, follow-up care, medications, Prescriptions given X 2, 16:24 Patient left the ED. me1 Signatures: Dispatcher [employer] EDBrenda Oconnell, LEAN SENSEI-C LEAN SENSEI-Glenis Aguilar RN RN me1 May Bruner RN RN tm6 Freda Edwards 3 Corrections: (The following items were deleted from the chart) 15:10 14:47 Chief complaint: Patient states: pain in side for one week and it's getting me1 worse. It hurts to take breaths, my skin is numb there. tm6 15:17 14:47 Chief complaint: Patient states: pain in side for one week and it's getting me1 worse. It hurts to take breaths, my skin is numb there. me1
[2024-06-03] MEDS ORDERED: HYDROCODONE/APAP 5/325 MG TAB ONE (16:04)
[2024-06-03 16:28] VITALS: O2SAT 100
[2024-06-03 16:30] VITALS: BP 112/69; TEMP 98.4
== END 2024-06-03 16:24 | disposition home or self-care (01) ==
LOC: ER 14:40
DX: R07.89 Other chest pain (principal); M79.621 Pain in right upper arm; F17.290 Nicotine dependence, other tobacco product, uncomplicated
CPT/HCPCS: 71045; 99284

== ENCOUNTER 2025-07-04 07:00 | Emergency (ER) | payer BC, SELFPAY ==
[2025-07-04 08:02] LABS: Absolute Lymphocytes (CBC) 1.6 K/uL (0.7-4.9); Hematocrit 39.4 % (36.0-45.0); Hemoglobin 13.6 g/dL (12.0-15.0); MCH 30.2 pg (27.0-35.0); MCHC 34.6 g/dL (32.0-36.0); MCV 87.2 fL (80-100); MPV 8.1 fL (7.6-11.3); Nucleated RBC Absolute Count 0.0 (0-0); Nucleated Red Blood Cells % 0.3 % (0-0); RBC Red Blood Cell Count 4.51 M/uL (3.86-4.86); White Blood Count 4.10 thou/uL (4.3-10.9)
[2025-07-04 08:20] LABS: Anion Gap 8.7 mEq/L (5.0-15.0); BUN Blood Urea Nitrogen 12 mg/dL (7-18); Glucose Level 85 mg/dL (74-106); Potassium 3.7 mEq/L (3.5-5.1)
[2025-07-04 08:22] LABS: Troponin High Sensitivity < 3.0 pg/mL (<58.9)
--- NOTE | 2025-07-04 08:30 | RAD REPORT ---
EXAMINATION: ONE VIEW CHEST XR CLINICAL INDICATION: CHEST PAIN TECHNIQUE: Frontal chest projection is submitted. Examination is limited by patient positioning and t echnique. COMPARISON: 06/03/2024 FINDINGS: The lungs are well inflated and clear. The heart is upper limit of normal in size. No displaced fract ures identified. IMPRESSION: No acute intrathoracic abnormalities.
--- NOTE | 2025-07-04 10:31 | EDPHYS ---
Physician Documentation [facility] Name: Belem Carrera Age: 29 yrs Sex: Female : 1995 Arrival Date: 07/04/2025 Time: 07:00 Bed 19 Private MD: ED Physician Jonah Boudreaux HPI: 07/04 07:29 This 29 yrs old Female presents to ER via Ambulatory with complaints of Chest Pain, Arm ms3 Pain. 07:29 29-year-old female with no past medical history presents to the emergency department ms3 for chest pain that began this morning. The patient states her pain is a 6/10 and described as aching located in the central right upper chest. Patient does note radiation to the left shoulder down to the left hand that is tingling sensation. Patient denies any alleviating or inciting factors. Patient denies nausea, vomiting, shortness of breath, diaphoresis.. 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 - Infectious Disease History:: Denies. - Social history:: Smoking status: Patient denies any tobacco usage or history of. ROS: 07:29 Constitutional: Negative for fever, and chills. Respiratory: Negative for shortness of ms3 breath, cough, wheezing, and pleuritic chest pain, Abdomen/GI: Negative for abdominal pain, nausea, vomiting, diarrhea, and constipation, MS/Extremity: Negative for injury and deformity, Skin: Negative for injury, rash, and discoloration, 07:29 Cardiovascular: Positive for chest pain, Exam: 07:29 Constitutional: This is a well developed, well nourished patient who is awake, alert, ms3 and in no acute distress. Cardiovascular: Regular rate and rhythm with a normal S1 and S2. No gallops, murmurs, or rubs. Normal PMI, no JVD. No pulse deficits. Respiratory: Lungs have equal breath sounds bilaterally, clear to auscultation and percussion. No rales, rhonchi or wheezes noted. No increased work of breathing, no retractions or nasal flaring. Abdomen/GI: Soft, non-tender, with normal bowel sounds. No distension or tympany. No guarding or rebound. No evidence of tenderness throughout. Skin: Warm, dry with normal turgor. Normal color with no rashes, no lesions, and no evidence of cellulitis. MS/ Extremity: Pulses equal, no cyanosis. Neurovascular intact. Full, normal range of motion. 07:42 ECG was reviewed by the Attending Physician. ms3 Vital Signs: 07:07 BP 130 / 92; Pulse 68; Resp 18; Temp 98.1(O); Pulse Ox 100% on R/A; Weight 113.4 kg; ar8 Height 5 ft. 6 in. ; Pain 6/10; 07:45 BP 123 / 79; Pulse 70; Resp 20; Pulse Ox 100% on R/A; ar8 08:51 BP 128 / 67; Pulse 72; Resp 17; Pulse Ox 100% ; ar8 09:45 BP 114 / 79; Pulse 65; Resp 17; Pulse Ox 100% on R/A; ar8 10:30 BP 131 / 91; Pulse 67; Resp 18; Pulse Ox 100% on R/A; ar8 07:07 Body Mass Index 40.35 (113.40 kg, 167.64 cm) ar8 07:07 Pain Scale: Adult ar8 MDM: 07:29 Differential diagnosis: abnormal EKG, acute myocardial infarction, acute pericarditis, ms3 anxiety, coronary artery disease chest wall pain. 07:38 Medical Screening Exam initiated ms3 10:32 HEART Score: History: Slightly Suspicious (0), ECG: Normal (0), Age: < or = 45 years ms3 (0), Risk Factors: No Risk Factors Known (0), Troponin: < or = 1 x Normal Limit (0), Total Score = 0. Data reviewed: vital signs, nurses notes, lab test result(s), EKG, radiologic studies, and as a result, I will discharge patient. Consideration of Admission/Observation Escalation of care including admission/observation considered. HEART score 0. Independent interpretation of the following test(s) in the Emergency Department EKG: See my EKG interpretation above. Counseling: I had a detailed discussion with the patient and/or guardian regarding the historical points, exam findings, and any diagnostic results supporting the discharge/admit diagnosis, lab results, radiology results, the need for outpatient follow up, to return to the emergency department if symptoms worsen or persist or if there are any questions or concerns that arise at home. Special discussion: I discussed with the patient/guardian in detail that at this point there is no indication for admission to the hospital. It is understood, however, that if the symptoms persist or worsen the patient needs to return immediately for re-evaluation. ED course: Discussed negative troponin x 2, normal EKG, chest x-ray findings with patient. Patient to follow-up with Dr. Luu in 2 to 3 days. All questions were answered. Return precautions were discussed include worsening symptoms, or any other concerns. On reevaluation patient symptoms improved, patient is alert and orient x 4, no apparent distress, nontoxic-appearing, speaking full sentences. 07/04 07:12 Order name: Basic Metabolic Panel; Complete Time: 08:27 ms3 07/04 07:12 Order name: CBC with Diff; Complete Time: 08:27 ms3 07/04 07:12 Order name: Troponin HS; Complete Time: 08:27 ms3 07/04 08:44 Order name: Troponin High Sensitivity; Complete Time: 10:26 ms3 07/04 07:12 Order name: XRAY Chest (1 view); Complete Time: 08:44 ms3 07/04 07:12 Order name: Cardiac monitoring; Complete Time: 07:45 ms3 07/04 07:12 Order name: EKG - Nurse/Tech; Complete Time: 07:45 ms3 07/04 07:12 Order name: IV Saline Lock; Complete Time: 07:45 ms3 07/04 07:12 Order name: Labs collected and sent; Complete Time: 07:45 ms3 07/04 07:12 Order name: O2 Per Protocol; Complete Time: 07:45 ms3 07/04 07:12 Order name: O2 Sat Monitoring; Complete Time: 07:46 ms3 EC:42 Rate is 64 beats/min. Rhythm is regular. QRS [place] is Normal. MS interval is normal. QRS ms3 interval is normal. Clinical impression: Normal ECG. Interpreted by me. Reviewed by me. Administered Medications: No medications were administered Disposition Summary: 07/04/25 10:30 Discharge Ordered Notes: Location: Home ms3 Condition: Stable ms3 Diagnosis - Chest pain, unspecified ms3 Followup: ms3 - With: Rex Luu DO - When: 2 - 3 days - Reason: Recheck today's complaints Discharge Instructions: - Discharge Summary Sheet ms3 - Nonspecific Chest Pain, Adult ms3 Forms: - Work release form ms3 - Medication Reconciliation Form ms3 - Antibiotic Education ms3 - Prescription Opioid Use ms3 - Patient Portal Instructions ms3 - Leadership Thank You Letter ms3 Signatures: Dispatcher [employer] EDMS Jonah Boudreaux DO DO ms3 Pop Oconnor, RN RN ar8 Corrections: (The following items were deleted from the chart) 07:13 07:13 BASIC METABOLIC PANEL+C.LAB.BRZ ordered. EDMS EDMS 07: 07:13 CBC+H.LAB.BRZ ordered. EDMS EDMS 07: 07:13 Troponin High Sensitivity+C.LAB.BRZ ordered. EDMS EDMS 07:13 07:13 Chest Single View+RAD.RAD.BRZ ordered. EDMS EDMS
--- NOTE | 2025-07-04 10:31 | ER ---
Nurse's Notes [facility] Name: Belem Carrera Age: 29 yrs Sex: Female : 1995 Arrival Date: 07/04/2025 Time: 07:00 Bed 19 Private MD: Diagnosis: Chest pain, unspecified Presentation: 07/04 07:07 Chief complaint: Patient states: C/O left arm pain, CP and a PARSON that she stated began ar8 at 0530 this morning. 07:07 Coronavirus screen: At this time, the client does not indicate any symptoms associated ar8 with coronavirus-19. Ebola Screen: No symptoms or risks identified at this time. Initial Sepsis Screen: Does the patient meet any 2 criteria? No. Patient's initial sepsis screen is negative. Does the patient have a suspected source of infection? No. Patient's initial sepsis screen is negative. Risk Assessment: Do you want to hurt yourself or someone else? Patient reports no desire to harm self or others. Onset of symptoms was July 04, 2025 at 05:30. 07:07 Method Of Arrival: Ambulatory ar8 07:07 Acuity: CECILIA 3 ar8 Triage Assessment: 07:21 General: Appears uncomfortable, Behavior is calm, cooperative. ar8 07:21 EENT: No signs and/or symptoms were reported regarding the EENT system. Neuro: Level of ar8 Consciousness is awake, alert, obeys commands, Oriented to person, place, time, situation. Neuro: Reports headache. Cardiovascular: Reports chest pain, Patient's skin is warm and dry. Respiratory: Airway is patent Respiratory effort is even, unlabored, Respiratory pattern is regular, symmetrical. GI: No signs and/or symptoms were reported involving the gastrointestinal system. : No signs and/or symptoms were reported regarding the genitourinary system. Derm: No signs and/or symptoms reported regarding the dermatologic system. Musculoskeletal: Reports pain in left arm. 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 - Infectious Disease History:: Denies. - Social history:: Smoking status: Patient denies any tobacco usage or history of. Screenin:22 [facility] ED Fall Risk Assessment (Adult) History of falling in the last 3 months, ar8 including since admission No falls in past 3 months (0 pts) Confusion or Disorientation No (0 pts) Intoxicated or Sedated No (0 pts) Impaired Gait No (0 pts) Mobility Assist Device Used No (0 pt) Altered Elimination No (0 pt) Score/Fall Risk Level 0 - 2 = Low Risk Oriented to surroundings, Maintained a safe environment. Abuse screen: Denies threats or abuse. Nutritional screening: No deficits noted. Tuberculosis screening: No symptoms or risk factors identified. Assessment: 07:22 Reassessment: See triage assessment'. ar8 Vital Signs: 07:07 BP 130 / 92; Pulse 68; Resp 18; Temp 98.1(O); Pulse Ox 100% on R/A; Weight 113.4 kg; ar8 Height 5 ft. 6 in. ; Pain 6/10; 07:45 BP 123 / 79; Pulse 70; Resp 20; Pulse Ox 100% on R/A; ar8 08:51 BP 128 / 67; Pulse 72; Resp 17; Pulse Ox 100% ; ar8 09:45 BP 114 / 79; Pulse 65; Resp 17; Pulse Ox 100% on R/A; ar8 10:30 BP 131 / 91; Pulse 67; Resp 18; Pulse Ox 100% on R/A; ar8 07:07 Body Mass Index 40.35 (113.40 kg, 167.64 cm) ar8 07:07 Pain Scale: Adult ar8 ED Course: 07:03 Patient arrived in ED. mr 07:10 Jonah Boudreaux DO is Attending Physician. ms3 07:10 Bed in low position. Call light in reach. Side rails up X2. Provided Education on: plan ar8 of care. 07:10 No provider procedures requiring assistance completed. Patient maintains SpO2 ar8 saturation greater than 95% on room air. 07:17 Pop Oconnor, RN is Primary Nurse. ar8 07:19 Triage completed. ar8 07:21 Arm band placed on right wrist. ar8 07:21 Client placed on continuous cardiac and pulse oximetry monitoring. NIBP monitoring ar8 applied. 07:33 EKG done, by ED staff, reviewed by Jonah Boudreaux DO. ar8 07:41 Inserted saline lock: 22 gauge in right forearm, using aseptic technique. Flushed with ar8 10 mL NS. 07:47 XRAY Chest (1 view) In Process Unspecified. EDMS 10:30 Rex Luu DO is Referral Physician. ms3 10:44 IV discontinued, intact, bleeding controlled, No redness/swelling at site. Pressure ar8 dressing applied. Administered Medications: No medications were administered Medication: 07:22 VIS not applicable for this client. ar8 Outcome: 10:30 Discharge ordered by MD. ms3 10:44 Discharged to home ambulatory, ar8 10:44 Condition: stable 10:44 Discharge instructions given to patient, Instructed on discharge instructions, follow up and referral plans. Demonstrated understanding of instructions, follow-up care, 10:44 Patient left the ED. ar8 Signatures: Dispatcher [employer] EDOK Rani Christian, Krishna Reg mr RodriguezsJonah DO DO ms3 Pop Oconnor, RN RN ar8
[2025-07-04 10:50] VITALS: TEMP 98.1; O2SAT 100
[2025-07-04 10:57] VITALS: BP 131/91
== END 2025-07-04 10:44 | disposition home or self-care (01) ==
LOC: ER 07:00
DX: R07.9 Chest pain, unspecified (principal)
CPT/HCPCS: 36415; 71045; 80048; 84484; 85025; 93005; 99284